=== PATIENT | female | born 1935 | race Caucasian/White ===

== ENCOUNTER 2020-09-28 14:53 | Inpatient (IN) | payer MEDICARE, BC ==
[~2020-09-28] VITALS: Ht 157.5 cm; Wt 63.5 kg
[2020-09-28 15:03] VITALS: BP 177/78
[2020-09-28 15:12] LABS: URINE BLOOD 2+ (Negative); URINE CLARITY CLEAR; URINE COLOR YELLOW; URINE GLUCOSE-RANDOM NEGATIVE (Negative); URINE KETONES TRACE (Negative); URINE PROTEIN 2+ (Negative)
[2020-09-28 15:14] LABS: ICTOTEST (BILI CONFIRMATORY) Negative (Negative); URINE BILIRUBIN 2+ (Negative); URINE LEUKOCYTES-REFLEX 2+ (Negative); URINE NITRITE-REFLEX POSITIVE (Negative)
[2020-09-28 15:25] LABS: BACTERIA-REFLEX >30 Many /HPF (None Seen); CRYSTALS None Seen /LPF (None Seen); HYALINE CASTS 0-3 Few /LPF (None Seen); MUCUS >6 Heavy strn/LPF (None Seen); URINE RBC 3-10 Few /HPF (0-2); URINE WBC-REFLEX 6-15 Few /HPF (0-5)
[2020-09-28] MEDS ORDERED: LIPITOR10 MG PO (15:34)
[2020-09-28] MEDS ORDERED: OMEPRAZOLE40 MG PO (15:35)
[2020-09-28] MEDS ORDERED: CALCIUM500 M1 PO (15:35)
[2020-09-28] MEDS ORDERED: B12 ACTIVE1000 MCG PO (15:35)
[2020-09-28] MEDS ORDERED: MINIVELLE1 EAC1 TOP (15:35)
[2020-09-28] MEDS ORDERED: ASA81BEC PO (15:35)
[2020-09-28] MEDS ORDERED: BENTYL 10 MG CA10 M1 PO (15:36)
[2020-09-28] MEDS ORDERED: VITRON-C TABLE1 EAC1 PO (15:36)
[2020-09-28] MEDS ORDERED: GLUCOSAMINE1000 MG PO (15:36)
[2020-09-28 15:37] LABS: ABSOLUTE BASOPHILS 0.1 thou/uL (0.0-0.2); ABSOLUTE LYMPHOCYTES 1.2 thou/uL (0.8-5.3); ABSOLUTE NEUTROPHILS 7.8 thou/uL (1.6-8.1); BASOPHILS 0.5 %; EOSINOPHILS 0.2 %; HEMATOCRIT 36.7 % (37.0-47.0); HEMOGLOBIN 12.5 gm/dL (12.0-15.0); LYMPHOCYTES 11.5 %; MCHC 34.1 g/dL (28.0-37.0); MCV 93.7 fL (80.0-100.0); MONOCYTES 10.2 %; MPV 6.7 fl. (7.2-11.1); NUCLEATED RBCS 0 /100WBC; PLATELET COUNT* 182 thou/uL (150-400); POLYS 77.6 %; RBC 3.92 mil/uL (4.20-5.00); RDW-CV 12.8 % (10.5-14.5); WBC 10.1 thou/uL (4.0-11.0)
[2020-09-28 15:48] LABS: CALCIUM 8.7 mg/dL (8.5-10.1); CREATININE 0.9 mg/dL (0.6-1.3); POTASSIUM 3.7 mmol/L (3.5-5.1)
[2020-09-28 15:49] LABS: INR 1.1; PROTIME 11.5 Seconds (9.20-11.50)
[2020-09-28 15:52] LABS: ALBUMIN 3.3 g/dL (3.4-5.0); TOTAL BILIRUBIN 1.1 mg/dL (<0.1-1.0); TOTAL PROTEIN 7.2 g/dL (6.4-8.2)
[2020-09-28 16:43] LABS: DIRECT BILIRUBIN 0.3 mg/dL (<0.1-0.3); TOTAL BILIRUBIN 1.1 mg/dL (<0.1-1.0)
[2020-09-28 16:46] LABS: SQUAMOUS >10 Many /LPF (0-3)
[2020-09-28 16:47] LABS: URINE SPECIFIC GRAVITY >= 1.030 (1.005-1.030)
[2020-09-28 18:57] VITALS: BP 118/52
[2020-09-28 20:30] VITALS: BP 122/52
--- NOTE | 2020-09-29 07:21 | NUR ---
PATIENT ARRIVED ON FLOOR FROM THE ER DURING SHIFT CHANGE. PATIENT ADMISSION HISTORY AND ASSESSMENT WAS COMPLETED CHARTED. IV FLUIDS WERE STARTED AT 100 ML/HR. PATIENT WAS GIVEN TYLENOL X1 FOR HEADACHE. WILL CONTINUE TO MONITOR.
[2020-09-29 07:50] VITALS: BP 122/46
--- NOTE | 2020-09-29 10:46 | NUR ---
PT.RESTING IN BED. DAUGHTER, RICKIE, AT BEDSIDE. PT.ALERT AND ORIENTED. LIVES IN [place]. WAS HERE VISITING AND BECAME ILL. WILL STAY AT [facility] FOR A FEW DAYS POST DISCHARGE AND THEN FLY BACK TO [place]. SHE IS VERY INDEPENDENT. DOES NOT USE ANY DME EXCEPT FOR A CPAP. HAS A DPOA FOR HEALTH CARE ON FILE IN [place] AT A HOSPITAL. HER DAUGHTER ARRON AYON IS HER DPOA. UNABLE TO OBTAIN. SHE SHOULD HAVE NO DISCHARGE NEEDS.
--- NOTE | 2020-09-29 13:58 | EKG ---
[place] [address] ELECTROCARDIOGRAM REPORT Name: DEBBIE CODY Room: [address] ADM IN M.R.#: [id number] Admission: 09/28/20 Attend Phys: Lonny Snow, Discharge: Date of : 35 Date of Service: 09/28/20 1515 Report #: [id number] THIS REPORT FOR: //name// [facility] ED Test Date: 2020-09-28 Test Time: 15:15:41 Pat Name: DEBBIE CODY Department: Room: [facility] Gender: F Filtration Operator: HUSEYIN : 1935 Requested By: Angelo Hairston Order Number: [id number] MD: Keith Sanchez Measurements Intervals [place] Rate: 81 P: 19 FL: 188 QRS: 0 QRSD: 90 T: 47 QT: 371 QTc: 431 Interpretive Statements Sinus rhythm No previous ECG available for comparison Electronically Signed On 09-29-2020 13:58:14 RESIDUE FURNACE OPERATOR by Keith Sanchez [email or web address] <ELECTRONICALLY SIGNED> By: Keith Sanchez MD, [facility] 09/29/20 1358 1515 1515 Keith Sanchez MD, [facility] /EPI
[2020-09-29 16:24] VITALS: BP 141/56
--- NOTE | 2020-09-29 17:38 | NUR ---
PT A&OX4 VSS. IV TO LAC PATENT, DRESSING C/D/I. IV ABX ADMINISTERED DIRECTED. PT UP AD NOAH, GAIT STEADY. PT REMAINS CONTINENT OF B/B. PT REMAINS ON ROOM AIR. PT DENIES PAIN, NAUSEA/VOMITING. PT RESTS IN ROOM WITH CALL LIGHT IN REACH.
[2020-09-29 20:40] VITALS: BP 135/54
[2020-09-30 04:58] LABS: HEMATOCRIT 28.2 % (37.0-47.0); MCH 32.5 pg (26.0-34.0); MCHC 34.9 g/dL (28.0-37.0); MCV 93.1 fL (80.0-100.0); MPV 7.3 fl. (7.2-11.1); RBC 3.03 mil/uL (4.20-5.00); RDW-CV 12.8 % (10.5-14.5); WBC 7.6 thou/uL (4.0-11.0)
--- NOTE | 2020-09-30 05:05 | NUR ---
PT AO X4 LYING IN BED FOR ASSESSMENT, SHE IS TALKATIVE AND ENGAGES IN CONVERSATION EASILY. PT DENIES PAIN OTHER THAN RECTAL PAIN FOR WHICH ZINC CREAM AND NYSTATIN POWER WAS APPLIED. PT WEARS BREIF FOR STRESS INCONTINENCE. VSS. PT DID NOT RECEIVE BOWEL PREP NO TIME FOR ADMIN WAS ASSIGNED, THIS WAS STARTED AT 2200. PT HAS BEEN AWAKE ALL NIGHT ON BSC WITH DARK STOOL WITH SOME SOFT CONSISTANTCY TO IT. SHE HAS SOME WOUNDS BLE THAT WERE TREATED BY WOUND NURSE WITH DSG CHANGE INSTRUCTIONS FOR Q 3 DAY CHANGES. PT HAS BEEN NPO SINCE MIDNIGHT FOR COLONOSCOPY TODAY.DAUGHTER CALLED FOR ECHO RESULT WHICH WAS NOT AVAILABLE AT TIME OF CALL AND WILL RETURN CALL TODAY IN HOPES TO GET THAT RESULT.
[2020-09-30 05:11] LABS: HEMOGLOBIN 9.8 gm/dL (12.0-15.0)
[2020-09-30 05:24] LABS: ALBUMIN 2.6 g/dL (3.4-5.0); CALCIUM 8.5 mg/dL (8.5-10.1); CREATININE 0.7 mg/dL (0.6-1.3); MAGNESIUM 2.1 mg/dL (1.8-2.4); TOTAL BILIRUBIN 0.3 mg/dL (<0.1-1.0); TOTAL PROTEIN 5.4 g/dL (6.4-8.2)
--- NOTE | 2020-09-30 05:30 | NUR ---
PT IS AO X4 AND AMBULATES AROUND THE ROOM INDEPENDENTLY. SHE REPORTS RED CHEEKS AND A FLUSHING FEELING WELL. I EXPLAINED THAT THIS IS A SIDE EFFECT OF THE PREDNISONE AND SHOULD LET US KNOW IF THIS BECOMES BOTHERSOME OR SHE HAS RASH OR SOA. SHE DENIES THESE SX AT THIS TIME. PT IS USING IS AT BEDSIDE AND IS IN GOOD SPIRITS. SHE DID HAVE A BIT OF TROUBLE FALLING TO SLEEP AND TOOK SOME TYLENOL FOR SOME GENERALIZED PAIN IN HER HEAD,BACK AND ABD.
[2020-09-30 07:50] VITALS: BP 175/65
--- NOTE | 2020-09-30 16:37 | NUR ---
PT ROUNDS: PT CONT TO HAVE SOB W/EXERCERTION AND ABDOMINAL DISTENSION.
--- NOTE | 2020-09-30 20:17 | NUR ---
Pt remained A&O for entire shift. Vital signs stable. Pt pleasant with staff. Pt up to chair for most of the day and "sunbathing" in the window. Pt noted some abdominal discomfort today and still feeling somewhat short of breath. Pt practicing incentive spirometer multiple times today. Bed in low position, call light within reach.
[2020-09-30 20:30] VITALS: BP 145/63
--- NOTE | 2020-10-01 05:46 | NUR ---
PT HAS SLEPT WELL THIS PM SHIFT GETTING UP TO TOILET A COUPLE TIMES. SHE FEELS BETTER TODAY THAT SHE DID YESTERDAY NOTING THAT SHE DOES STILL HAVE SOME FULLNESS IN LOW ABD AND ATTRIBUTES THIS TO HER UTI. SHE STATES HER COUGH HAS MORE PRODUCITON THAT IS NOW A GREENISH COLOR. SHE DENIES PAIN.
[2020-10-01 05:48] LABS: HEMATOCRIT 32.2 % (37.0-47.0); HEMOGLOBIN 10.9 gm/dL (12.0-15.0); MCH 31.9 pg (26.0-34.0); MCHC 33.8 g/dL (28.0-37.0); MCV 94.4 fL (80.0-100.0); RBC 3.41 mil/uL (4.20-5.00); WBC 4.8 thou/uL (4.0-11.0)
[2020-10-01 06:03] LABS: ALBUMIN 2.7 g/dL (3.4-5.0); CALCIUM 8.6 mg/dL (8.5-10.1); CREATININE 0.7 mg/dL (0.6-1.3); POTASSIUM 4.1 mmol/L (3.5-5.1); TOTAL BILIRUBIN 0.4 mg/dL (<0.1-1.0); TOTAL PROTEIN 6.1 g/dL (6.4-8.2)
[2020-10-01 08:15] VITALS: BP 173/76
--- NOTE | 2020-10-01 12:51 | NUR ---
CT looked worse yesterday, Pt back on IVABX. Anticipate dc tomorrow.
[2020-10-01 14:46] VITALS: BP 137/56
--- NOTE | 2020-10-01 15:12 | 2DMMODE ---
[place] [address] 2 D/M-MODE ECHOCARDIOGRAM Name: DEBBIE CODY Room: [address] IN .R.#: [id number] Admission: 09/28/20 Attend Phys: Lonny Snow, Discharge: Date of : 35 Date of Service: 10/01/20 1512 Report #: [id number] THIS REPORT FOR: cc: Physician not on staff Physician not on staff Keith Sanchez MD [facility] ~ APPROVED REPORT Study performed: 10/01/2020 09:13:26 EXAM: Comprehensive 2D, Doppler, and color-flow Echocardiogram Patient Location: In-Patient Room #: [facility] Status: routine BSA: 1.64 HR: 70 bpm BP: 145/63 mmHg Rhythm: NSR Other Information Study Quality: Good Indications pulmonary edema 2D Dimensions IVSd: 9.02 (7-11mm) LVOT Diam: 18.97 (18-24mm) LVDd: 42.30 mm PWd: 9.22 (7-11mm) Ascending Ao: 28.52 (22-36mm) LVDs: 28.89 (25-40mm) Aortic Root: 28.89 mm Volumes Left Atrial Volume (Systole) LA ESV Index: 31.60 mL/m2 Aortic Valve AoV Peak Nelson.: 1.20 m/s AO Peak Gr.: 5.78 mmHg LVOT Max P.54 mmHg AO Mean Gr.: 2.79 mmHg LVOT Mean P.53 mmHg LVOT Max V: 0.94 m/s AO V2 VTI: 27.97 cm LVOT Mean V: 0.56 m/s KASIA (VTI): 2.54 cm2 LVOT V1 VTI: 25.14 [place] [address] 2 D/M-MODE ECHOCARDIOGRAM Name: DEBBIE CODY Room: [address] IN .R.#: [id number] Admission: 09/28/20 Attend Phys: Lonny Snow, Discharge: Date of : 35 Date of Service: 10/01/20 1512 Report #: [id number] Mitral Valve E/A Ratio: 1.11 MV Decel. Time: 140.89 ms MV E Max Nelson.: 0.96 m/s MV PHT: 40.86 ms MVA (PHT): 5.38 cm2 TDI E/Lateral E': 10.67 E/Medial E': 12.00 Medial E' Nelson.: 0.08 m/s Lateral E' Nleson.: 0.09 m/s Pulmonary Valve PV Peak Nelson.: 0.86 m/s PV Peak Gr.: 2.93 mmHg Tricuspid Valve RAP Estimate: 5.00 mmHg TR Peak Gr.: 30.02 mmHg RVSP: 35.00 mmHg PA Pressure: 35.00 mmHg Left Ventricle The left ventricle is normal size. There is normal LV segmental wall motion. There is normal left ventricular wall thickness. Left ventricular systolic function is normal. The left ventricular ejection fraction is within the normal range. LVEF is 55-60%. The left ventricular diastolic function is normal. Right Ventricle The right ventricle is normal size. The right ventricular systolic function is normal. Atria The left atrium size is normal. The right atrium size is normal. Aortic Valve The aortic valve is normal in structure. No aortic regurgitation is present. There is no aortic valvular stenosis. Mitral Valve The mitral valve is normal in structure. Mild mitral regurgitation. No evidence of mitral valve stenosis. Tricuspid Valve The tricuspid valve is normal in structure. Mild tricuspid regurgitation. [place] [address] 2 D/M-MODE ECHOCARDIOGRAM Name: DEBBIE CODY Room: [address] IN [facility]#: [id number] Admission: 09/28/20 Attend Phys: Lonny nSow, Discharge: Date of : 35 Date of Service: 10/01/20 1512 Report #: [id number] Pulmonic Valve The pulmonary valve is normal in structure. There is no pulmonic valvular regurgitation. Great Vessels The aortic root is normal in size. IVC is normal in size and collapses >50% with inspiration. Pericardium There is no pericardial effusion. <Conclusion> The left ventricle is normal size. There is normal left ventricular wall thickness. Left ventricular systolic function is normal. The left ventricular ejection fraction is within the normal range. LVEF is 55-60%. The left ventricular diastolic function is normal. The right ventricle is normal size. The left atrium size is normal. The aortic valve is normal in structure. The mitral valve is normal in structure. Mild mitral regurgitation. The tricuspid valve is normal in structure. Mild tricuspid regurgitation. Mild pulmonary hypertension. IVC is normal in size and collapses >50% with inspiration. There is no pericardial effusion. There is normal LV segmental wall motion. <ELECTRONICALLY SIGNED> By: Keith Sanchez MD, FACC 10/01/201511 11 11 Keith Sanchez MD, FACC /INF
--- NOTE | 2020-10-01 20:00 | NUR ---
Pt remained A&O for entire shift. Pt pleasant with staff. Pt washed her hair in the sink this morning and reports feeling much better afterwards. Pt's daughter in room for part of the day. Bed in low position, call light within reach.
[2020-10-01 21:00] VITALS: BP 153/57
[2020-10-02 08:00] VITALS: BP 182/73
--- NOTE | 2020-10-02 08:39 | NUR ---
PATIENT HAS SLEPT WELL THROUGHOUT MOST OF THE NIGHT. VSS ON RA. PATIENT UP AD-NOAH TO THE BATHROOM. MEDICATIONS GIVEN ORDERED AND CHARTED. IV IN LEFT AC-SL. IV ABT GIVEN WITHOUT ANY ADVERSE SIDE EFFECTS NOTED. PATIENT INSTRUCTED TO USE CALL LIGHT WHEN NEEDING ASSISTANCE. HOURLY ROUNDS MADE. WILL CONTINUE WITH PLAN OF CARE AND NURSING TO MONITOR.
--- NOTE | 2020-10-02 11:22 | NUR ---
FEELING BETTER TODAY. UP AD NOAH. CONITUE IV ANTIBIOTICS TODAY. HOPEFUL FOR DISCHARGE TOMORROW. WILL NEED RESTING AND EXERCISE SATS PRIOR TO DISCHARGE.
[2020-10-02 16:00] VITALS: BP 140/59
--- NOTE | 2020-10-02 17:39 | NUR ---
PT REMAINS ALERT AND ORIENTED. PT SITTING IN BED AT THIS TIME. DENIES PAIN. DAUGHTER AT BEDSIDE TODAY. IV REPLACED. PT AMBULATES AROUND THE [place] STEADY WITH ONE PERSON ASSIST. ONE BM TODAY. NO COMPLAINTS AT THIS TIME. WILL CONTINUE TO MONITOR.
[2020-10-02 20:20] VITALS: BP 139/54
--- NOTE | 2020-10-03 07:51 | NUR ---
PATIENT SLEPT WELL THROUGHOUT THE NIGHT. VSS ON RA. MEDICATIONS GIVEN ORDERED AND CHARTED. PATIENT UP AD-NOAH. IV IN RIGHT FOREARM-SL. IV ABT GIVEN ORDERED AND CHARTED. PATIENT INSTRUCTED TO USE CALL LIGHT WHEN NEEDING ASSISTANCE. HOURLY ROUNDS MADE. WILL CONTINUE WITH PLAN OF CARE AND NURSING TO MONITOR.
[2020-10-03 08:45] VITALS: BP 139/54
[2020-10-03] MEDS ORDERED: DOXYCYCLINE 10100 M2 PO (09:05)
[2020-10-03] MEDS ORDERED: CEFDINIR300 MG PO (09:05)
[2020-10-03 12:19] VITALS: BP 139/54
--- NOTE | 2020-10-03 14:00 | NUR ---
PT.TO DISCHARGE HOME TODAY WITH DAUGHTER. PER R.T. RESTING AND EXERCISE SATS, SHE DID NOT NEED O2.
== END 2020-10-03 14:35 | disposition home or self-care (01) | DRG 177 ==
LOC: M.ERS 14:53 → M.3W 16:19 → M.TBA-ER 16:19 → M.3W 19:03
PROVIDERS: Internal Medicine; Physician Assistant; ADMIT Internal Medicine; ATTEND Internal Medicine
DX: J69.0 Pneumonitis due to inhalation of food and vomit (principal); G92 Toxic encephalopathy; J91.8 Pleural effusion in other conditions classified elsewhere; Z20.822 Contact with and (suspected) exposure to COVID-19; E78.5 Hyperlipidemia, unspecified; I10 Essential (primary) hypertension; K21.9 Gastro-esophageal reflux disease without esophagitis; E80.6 Other disorders of bilirubin metabolism; A08.4 Viral intestinal infection, unspecified; N30.91 Cystitis, unspecified with hematuria; Z79.899 Other long term (current) drug therapy; R53.81 Other malaise

== ENCOUNTER 2020-10-09 15:03 | Emergency (ER) | payer MEDICARE, BC ==
[~2020-10-09] VITALS: Ht 157.5 cm; Wt 63.5 kg
[~2020-10-09 15:03] MED LIST: ASA81BEC PO; B12 ACTIVE1000 MCG PO; BENTYL 10 MG CA10 M1 PO; CALCIUM500 M1 PO; CEFDINIR300 MG PO; DOXYCYCLINE 10100 M2 PO; GLUCOSAMINE1000 MG PO; LIPITOR10 MG PO; MINIVELLE1 EAC1 TOP; OMEPRAZOLE40 MG PO; VITRON-C TABLE1 EAC1 PO
[2020-10-09 15:40] LABS: ABSOLUTE BASOPHILS 0.1 thou/uL (0.0-0.2); ABSOLUTE EOSINOPHILS 0.1 thou/uL (0.0-0.7); ABSOLUTE LYMPHOCYTES 1.7 thou/uL (0.8-5.3); ABSOLUTE MONOCYTES 0.6 thou/uL (0.0-1.2); ABSOLUTE NEUTROPHILS 4.7 thou/uL (1.6-8.1); BASOPHILS 0.7 %; EOSINOPHILS 1.1 %; HEMATOCRIT 35.4 % (37.0-47.0); HEMOGLOBIN 11.9 gm/dL (12.0-15.0); LYMPHOCYTES 23.8 %; MCH 31.4 pg (26.0-34.0); MCHC 33.5 g/dL (28.0-37.0); MCV 93.6 fL (80.0-100.0); MONOCYTES 8.1 %; MPV 6.4 fl. (7.2-11.1); NUCLEATED RBCS 0 /100WBC; PLATELET COUNT* 316 thou/uL (150-400); POLYS 66.3 %; RBC 3.78 mil/uL (4.20-5.00); RDW-CV 12.9 % (10.5-14.5); WBC 7.2 thou/uL (4.0-11.0)
[2020-10-09 15:48] LABS: CALCIUM 8.5 mg/dL (8.5-10.1); CREATININE 0.8 mg/dL (0.6-1.3)
[2020-10-09 15:48] LABS: URINE BILIRUBIN NEGATIVE (Negative); URINE BLOOD TRACE (Negative); URINE CLARITY CLEAR; URINE COLOR YELLOW; URINE GLUCOSE-RANDOM NEGATIVE (Negative); URINE KETONES NEGATIVE (Negative); URINE LEUKOCYTES-REFLEX TRACE (Negative); URINE NITRITE-REFLEX NEGATIVE (Negative); URINE PROTEIN NEGATIVE (Negative); URINE SPECIFIC GRAVITY <= 1.005 (1.005-1.030); URINE UROBILINOGEN 0.2 E.U./dl (0.2-1.0)
[2020-10-09 15:56] LABS: SQUAMOUS 0-3 Few /LPF (0-3); URINE RBC 0-2 Rare /HPF (0-2); URINE WBC-REFLEX 0-5 Rare /HPF (0-5)
[2020-10-09 15:57] LABS: CASTS None Seen /LPF (None Seen); CRYSTALS None Seen /LPF (None Seen); MUCUS None Seen strn/LPF (None Seen)
[2020-10-09 16:06] LABS: ALBUMIN 3.5 g/dL (3.4-5.0); TOTAL BILIRUBIN 0.5 mg/dL (<0.1-1.0)
--- NOTE | 2020-10-09 16:29 | EKG ---
[place] [address] ELECTROCARDIOGRAM REPORT Name: DEBBIE CODY Room: [facility]#: [id number] Admission: 10/09/20 Attend Phys: Discharge: Date of : 35 Date of Service: 10/09/20 1525 Report #: [id number] THIS REPORT FOR: //name// [facility] ED Test Date: 2020-10-09 Test Time: 15:25:03 Pat Name: DEBBIE CODY Department: Room: Gender: Ferry Pilot: [facility] : 1935 Requested By: Angelo Hairston Order Number: [id number] MD: Werner Cr Measurements Intervals [place] Rate: 71 P: 35 RI: 201 QRS: 10 QRSD: 84 T: 59 QT: 396 QTc: 431 Interpretive Statements Sinus rhythm Compared to ECG 09/28/2020 15:15:41 No significant changes Electronically Signed On 10-09-2020 16:29:26 ADULT PROBATION OFFICER by Werner Cr [email or web address] <ELECTRONICALLY SIGNED> By: Werner Cr MD, [facility] 10/09/20 1629 1525 1525 Werner Cr MD, [facility] /EPI
[2020-10-09 16:48] VITALS: BP 134/54
== END 2020-10-09 16:49 | disposition home or self-care (01) ==
LOC: M.ERS 15:03
PROVIDERS: Physician Assistant
DX: R53.1 Weakness (principal); R05 Cough; E78.5 Hyperlipidemia, unspecified; K21.9 Gastro-esophageal reflux disease without esophagitis; Z90.49 Acquired absence of other specified parts of digestive tract; Z98.890 Other specified postprocedural states; Z79.2 Long term (current) use of antibiotics; Z79.899 Other long term (current) drug therapy; Z79.82 Long term (current) use of aspirin